=== PATIENT | male | born 1960 | race Caucasian/White ===

== ENCOUNTER → 2017-03-10 | Outpatient (CLI) | payer OTHER ==
--- NOTE | 2017-03-10 15:39 | KCIC ---
Complete lumbar spine Indication: Chronic low back pain FINDINGS: There is grade 1 degenerative anterolisthesis of L4 on L5. There is subtle retrolisthesis of L3 on L4 and L2 on L3. No evidence for compression fracture. There is degenerative disc height loss at all levels greatest at L5-S1. Facet arthropathy is noted at L4-L5 SI joints are open and corticated. IMPRESSION: Multilevel degenerative disc and facet disease with degenerative grade 1 anterolisthesis of L4 on L5 and retrolisthesis of L3 on L4 and L2 on L3. There is moderate disc height loss at L4-L5. Electronically signed by: Yuniel Isaacs MD (03/10/2017 3:36 PM)
== END | disposition home or self-care (01) ==
LOC: KCIC 11:57
PROVIDERS: ATTEND Family Medicine
DX: M51.36 Other intervertebral disc degeneration, lumbar region (principal); G89.29 Other chronic pain
CPT/HCPCS: 72110

== ENCOUNTER → 2018-06-19 | Outpatient (CLI) | payer OTHER ==
--- NOTE | 2018-06-19 16:29 | KCIC ---
MR of the right knee Indication: Right knee injury, acute pain. Medial pain for 6 or 7 weeks. Swelling. Technique: The standard multiplanar sequences are obtained. FINDINGS: Artifact: No significant image degradation. Medial meniscus:Mild blunting of the free margin of the medial meniscus. Mild meniscal distortion. Findings are compatible with a small tear. Lateral meniscus: Intact. Anterior cruciate ligament: Intact Posterior cruciate ligament: Intact Medial collateral ligament: Intact. Lateral structures: * Iliotibial band: Intact. * Lateral collateral ligament: Intact. * Biceps femoris tendon: Intact * Popliteus tendon attachment: Intact Extensive mechanism: * Patellar tendon: Intact * Quadriceps tendon: Intact * Retinacular structures: Intact Fluid: Small joint effusion. No significant Torres's cyst. Intra-articular bodies: None visualized Joint compartments * patellofemoral joint: Severe chondromalacia. * medial compartment: Severe chondromalacia. * lateral compartment: Mild chondromalacia. Bones: No significant lesion or acute fracture. Soft tissue: Unremarkable Impression: 1. Medial meniscal tear. 2. Primary osteoarthritis. Electronically signed by: Casey Thomas MD (06/19/2018 4:25 PM) [id number]
== END | disposition home or self-care (01) ==
LOC: KCIC MRI 14:38
PROVIDERS: ATTEND Physician Assistant Medical
DX: S83.241A Other tear of medial meniscus, current injury, right knee, initial encounter (principal); M17.11 Unilateral primary osteoarthritis, right knee; M22.41 Chondromalacia patellae, right knee; M25.461 Effusion, right knee; X58.XXXA Exposure to other specified factors, initial encounter; Y93.89 Activity, other specified; Y92.89 Other specified places as the place of occurrence of the external cause; Y99.8 Other external cause status
CPT/HCPCS: 73721